=== PATIENT | male | born 1935 | race Caucasian/White ===

== ENCOUNTER 2021-03-26 13:02 | Outpatient (CLI) | payer MEDICARE, SELFPAY ==
--- NOTE | 2021-03-26 13:14 | CT_ITS ---
WS: [id number] CT ABDOMEN CONTRAST TECHNIQUE: Contrast enhanced CT of the abdomen with coronal and sagittal reformatted images. CLINICAL INFORMATION: ABDOMINAL PAIN COMPARISON: None. DLP: 671.[address] scans at [facility] use at least one of these dose optimization techniques: automat ed exposure control; mA and/or kV adjustment per patient size (includes targeted exams where dose is matched to clinical indication); or iterative reconstruction. FINDINGS: Advanced chronic emphysematous changes in the lung bases. Bulla formation right lower lobe. Mild diff use fatty infiltration liver. Numerous low-attenuation lesions in both hepatic lobes too small to darshana racterize but likely tiny hepatic cysts. Larger cyst in the inferior right hepatic lobe measuring 2.3 CM.Incidental enhancing lesion right hepatic lobe laterally likely cavernous hemangioma. Normal portal vein and splenic vein. Small esophageal hiatal hernia. Fatty atrophy of the pancreas. A ortic calcification. Normal caliber abdominal aorta. Adrenal glands are normal. Normal renal parenchy mal enhancement. No hydronephrosis. A few tiny bilateral renal cysts. Air distended loops of small elizabeth wel in the mid and upper abdomen with a few air-fluid levels. Persistent air within the partially vis ualized colon. Mild colonic constipation. No evidence of high-grade obstruction. Recommend correlatio n for small bowel ileus. No abdominal lymphadenopathy. Slight retrolisthesis L2 on L3, L3 on L4, L4 on L5. CT/CT abdomen w con* [id number] IMPRESSION: 1. Air distended loops of small bowel in the mid and upper abdomen with a few air-fluid levels. No evidence of high-grade obstruction.Correlation for small b owel ileus. 2. Mild colonic constipation partially visualized. 3. Numerous tiny low-attenuation lesions in both hepatic lobes too small mary cterize likely hepatic cysts. 4. 2.3 cm hepatic cyst right inferior hepatic lobe. 5. Incidental enhancing lesion right hepatic lobe laterally likely cavernous h emangioma. 6. No hydronephrosis in either kidney. A few tiny renal cysts. 7. Small esophageal hiatal hernia. 8. Tiny fat-containing umbilical hernia.
[2021-03-26] MEDS: iohexol 300 mg/mL 50 mL Btl PO (13:49)
[2021-03-26] MEDS: iohexol 300 mg/mL 100 mL Btl IV (14:22)
== END 2021-03-26 13:03 | disposition home or self-care (01) ==
PROVIDERS: PCP Nurse Practitioner Primary Care; Visit Provider Nurse Practitioner Primary Care
DX: R10.9 Unspecified abdominal pain (principal); K42.9 Umbilical hernia without obstruction or gangrene; K44.9 Diaphragmatic hernia without obstruction or gangrene; Q61.02 Congenital multiple renal cysts; K76.89 Other specified diseases of liver
CPT/HCPCS: 74160; Q9967

== ENCOUNTER 2021-04-17 13:06 | Emergency (ER) | payer MEDICARE, SELFPAY ==
[2021-04-17 13:40] VITALS: BP 176/87; PULSE 68; RESP 18; TEMP 36.7; O2SAT 95; BMI 19.0
[2021-04-17 17:08] LABS: Basophils # 0.1 10^3/uL (0.0-0.1); Basophils % 0.9 %; Eosinophils # 0.2 10^3/uL (0.0-0.8); Hematocrit 41.4 % (42.0-52.0); Hemoglobin 13.9 g/dL (11.7-16.6); Lymphocytes # 1.6 10^3/uL (0.8-4.8); Mean Corpuscular HGB Conc 33.6 g/dL (30.0-36.0); Mean Corpuscular Hemoglobin 32.6 pg (28.0-34.0); Mean Corpuscular Volume 97.2 fl (80-94); Mean Platelet Volume 9.6 fL (7.4-10.4); Monocytes % 13.1 %; Neutrophils # 4.75 10^3/uL (1.8-7.7); Neutrophils % 61.7 %; Nucleated Red Blood Cells % 0 %; Platelet Count 338 10^3/cmm (130-400); Red Blood Count 4.26 10^6/uL (4.1-5.3); Red Cell Distribution Width 11.8 % (12.1-15.1); White Blood Count 7.7 10^3/uL (4.0-10.0)
[2021-04-17 17:22] VITALS: BP 146/92; PULSE 82; RESP 18; O2SAT 97
[2021-04-17 17:26] LABS: Alanine Aminotransferase 13 U/L (0-41); Albumin Level 4.1 g/dL (3.5-5.2); Alkaline Phosphatase 90 IU/L (40-130); Anion Gap 16.4 (5-19); Aspartate Amino Transferase 20 U/L (0-40); Blood Urea Nitrogen 17 mg/dL (8-23); Calcium 11.9 mg/dL (8.5-10.5); Carbon Dioxide 29 mmol/L (22-29); Chloride 96 mmol/L (98-107); Globulin 3.5 g/dL (1.3-4.6); Glucose 98 mg/dL (65-115); Lipase 26 U/L (13-60); Osmolality Calculated 288 mOsm/kg (285-295); Potassium 3.4 mmol/L (3.5-5.1); Sodium 138 mmol/L (136-145); Total Bilirubin 0.7 mg/dL (0.15-1.2); Total Protein 7.6 g/dL (6.6-8.7)
[2021-04-17 17:28] LABS: Add Urine Microscopic? NO; Charge for UA Resulting for Rev
[2021-04-17 17:32] LABS: Urine Appearance Cloudy (CLEAR); Urine Color Straw (Yellow); pH Urine 8 (5-7)
[2021-04-17 17:33] LABS: Bilirubin Urine Neg (Negative); Blood Urine Neg (Negative); Glucose Urine UA Norm (Normal); Ketones Urine Negative (Negative); Leukocyte Esterase Urine Negative (Negative); Nitrate Urine Negative (Negative); Protein Urine Neg (Negative); Urobilinogen Urine Norm (Negative)
--- NOTE | 2021-04-17 17:52 | CTR_ITS ---
PROCEDURE INFORMATION: Exam: CT Abdomen And Pelvis With Contrast Exam date and time: 04/17/2021 5:52 PM Age: 85 years old Clinical indication: Prior surgery; Surgery type: Hernia; Patient HX: General abd pain, constipation, non smoker, no HX cancer TECHNIQUE: Imaging protocol: Computed tomography of the abdomen and pelvis with contrast. Radiation optimization: All CT scans at this facility use at least one of these dose optimization techniques: automated exposure control; mA and/or kV adjustment per patient size (includes targeted exams where dose is matched to clinical indication); or iterative reconstruction. Contrast material: [id number]; Contrast volume: 87 ml; Contrast route: INTRAVENOUS (IV); COMPARISON: CT abdomen w con* [id number] 03/26/2021 2:19 PM RADIATION DOSE METRICS: Total DLP (mGy-cm): 670.89 FINDINGS: Lungs: Increased coarse interstitial opacities in the peripheral lungs. Changes of emphysema with multiple blebs. Liver: Multiple low-density lesions in the liver are too small to characterize but are most likely cysts. Focal fatty infiltration in the left lobe. No follow-up imaging is recommended. Gallbladder and bile ducts: Normal. No calcified stones. No ductal dilation. Pancreas: Normal. No ductal dilation. Spleen: Normal. No splenomegaly. Adrenal glands: Normal. No mass. Kidneys and ureters: Small hypodense lesion in the left kidney is too small to characterize but is most likely a cyst. The kidneys are otherwise unremarkable. No follow-up imaging is recommended. Stomach and bowel: Large amount of stool throughout the colon to the rectum. Diffuse gaseous distension of the small bowel with no air-fluid levels. Gaseous distention of the transverse colon. Appendix: The appendix is visualized and is normal. Intraperitoneal space: Unremarkable. No free air. No significant fluid collection. Vasculature: Atherosclerotic calcifications. No aneurysm. Lymph nodes: Unremarkable. No enlarged lymph nodes. Urinary bladder: Unremarkable as visualized. Reproductive: Coarse calcifications in the prostate. Bones/joints: Scoliosis with degenerative changes of the lumbar spine. No fracture. Soft tissues: Unremarkable. CT/CT abdomen pelvis w con* [id number] IMPRESSION: 1. Diffuse gaseous distention of the small bowel is most likely ileus. 2. Large amount of stool in the colon with gaseous distention of the transverse colon. This likely indicates constipation with possible rectal impaction. 3. Increased coarse interstitial opacities in the peripheral lungs. This could represent progressive interstitial fibrosis. Superimposed pneumonia is not excluded. COMMENTS: Consistent with the [employer]'s Incidental Findings Committee white paper (J Am Sarmad Radiol 2018): Any incidental renal lesion less than 1 cm or classified as too small to characterize, or any incidental cystic renal lesion characterized as simple-appearing, is likely benign. No follow-up imaging is recommended for these lesions per consensus recommendations based on imaging criteria. Radiation Dose CTDIVOL = (mGy): DLP = 670.89 (mGy-cm)
[2021-04-17 18:09] VITALS: BP 143/79; RESP 18; O2SAT 95
--- NOTE | 2021-04-17 19:24 | PC.NURSE ---
ct called patient next, patient updated
[2021-04-17 19:31] VITALS: BP 145/85; PULSE 59; RESP 12; O2SAT 91
--- NOTE | 2021-04-17 19:33 | PC.NURSE ---
introduction to patient, no distress noted, patient resting on bed, no neds or concerns at this time
--- NOTE | 2021-04-17 21:17 | PC.NURSE ---
emema completed per dr order patient tolerated well, bedside commode and call lih=t in reach, patient to call if needs assistance or when completed bm
--- NOTE | 2021-04-17 21:40 | ED_ITS ---
HPI - Abdominal Pain General: Chief Complaint: Abdominal Pain Stated Complaint: trouble emptying bowels Time Seen by Provider: 04/17/21 16:53 Source: patient and family Mode of arrival: ambulatory Limitations: no limitations History of Present Illness: HPI narrative: This pleasant 85-year-old male presents to the emergency department with constipation and abdominal pain. He was sent by his primary care provider because he had apparently obtained a CT scan a few days ago which was concerning for bowel obstruction. The patient's last bowel movement was 3 days ago. Usual for him should be about once a day but he has had issues with constipation for many years now. He denies any fever, denies nausea or vomiting. He denies any urinary symptoms. MD elicited complaint: abdominal pain Pertinent past history: constipation Onset (ago): day(s) (3) Pain Consistency: constant Location: Diffuse Severity: moderate Quality: cramping Radiation: none Migration to: no migration Exacerbating factors: nothing Relieving factors: nothing Associated Symptoms: Reports change in stool character, constipation and GI cramping; Denies anorexia, belching, bloating, change in bowel habits, chills, coffee ground emesis, diarrhea, dyspepsia, dysuria, excessive flatus, fever(s), heartburn, hematochezia, hematuria, hematemesis, fecal incontinence, loose stools, melena, nausea, poor appetite, syncope and vomiting Review of Systems General: Reports: 10 or more systems reviewed and unremarkable except in HPI and below Const: Denies: fever(s) or chills Card: Denies: syncope GI: Reports: constipation, GI cramping and change in stool character; Denies: nausea, vomiting, hematemesis, coffee ground emesis, heartburn, di arrhea, bloating, belching, excessive flatus, fecal incontinence, change in bowel habits, hematochezia or melena : Denies: dysuria or hematuria Physical Exam Const: COMMON NORMALS: no acute distress, average body habitus, patient oriented x3, no limitations, healthy appearing, alert and well nourished HENMT: COMMON NORMALS: normocephalic, atraumatic and moist oral mucous membranes HEAD & SCALP: normocephalic and atraumatic Neck/C-Spine: COMMON NORMALS: no meningeal signs and no JVD Resp: COMMON NORMALS: normal respiratory effort, No retractions, No use of accessory muscles, clear to auscultation bilaterally and percussion normal AU SCULTATION: clear to auscultation bilaterally PERCUSSION: percussion normal Cardio: COMMON NORMALS: no JVD, regular rate, regular rhythm, S1 normal heart sound present, S2 normal heart sound present, No gallops present (Cardio), No clicks present (Cardio), No murmurs present (Cardio), No rub (Cardio) and P eripheral pulses 2+ throughout RATE: regular rate RHYTHM: regular rhythm HEART SOUNDS: S1 normal heart sound present and S2 normal heart sound present PERIPHERAL PULSES: Peripheral pulses 2+ throughout GI: COMMON NORMALS: Soft to palpation, non-tender, No hepatosplenomegaly present, no masses and no bruits INSPECTION: Yes abdominal distension (lower abdomen) AUSCULTATION: Yes Hyperactive bowel sounds present PALPATION: Yes Soft to palpation and Yes No hepatosplenomegaly present Extremity: COMMON NORMALS: normal to inspection, full ROM, capillary refill normal, no calf tenderness and no pedal edema Neuro: COMMON NORMALS: patient oriented x3 SENSORIUM/ORIENTATION: Yes alert MENINGEAL SIGNS: Yes no meningeal signs Skin: COMMON NORMALS: no rashes or lesions noted, no wounds, turgor normal, no jaundice, no petechiae and no mottling GENERAL SKIN EXAM: no rashes or lesions noted and turgor normal Course Reevaluation(s): Reevaluation #1: Discussed his lab and imaging findings with him. CT scan is consistent with constipation only. No signs of bowel ob struction. We did give him milk and molasses enema and this was successful and he had a large bowel movement. He feels much better. He is ready to be discharged home. We will discharge him home with a prescription for MiraLAX to help him have regular bowel movements. He voiced understanding and is in agreement with the plan. Time: 21:41 Vital Signs: Vital signs: Vital Signs Temperature 98.1 F 04/17/21 13:40 Pulse Rate 88 04/17/21 22:11 Respiratory Rate 22 H 04/17/21 22:11 Blood Pressure 116/56 04/17/21 22:11 Pulse Oximetry 98 04/17/21 22:11 MDM - Abdominal Pain MDM Narrative: Medical decision making narrative: 85-year-old male who presents to the emergency department with constipation. He had concerns for bowel obstruction but evaluation here was consistent with constipation. He had an enema done in the emergency department which was very successful and he is discharged home. Medical Records: Attestation: I reviewed the patient's medical records. Lab Data: Attestation: I reviewed the patient's lab results. Labs: Lab Results 04/17/21 04/17/21 04/17/21 Range/Units 17:00 17:00 17:22 WBC 7.7 (4.0-10.0) 10^3/ uL RBC 4.26 (4.1-5.3) 10^6/u L Hgb 13.9 (11.7-16.6) g/dL Hct 41.4 L (42.0-52.0) % MCV 97.2 H (80-94) fl MCH 32.6 (28.0-34.0) pg MCHC 33.6 (30.0-36.0) g/dL RDW 11.8 L (12.1-15.1) % Plt Count 338 (130-400) 10^3/c mm MPV 9.6 (7.4-10.4) fL Neut % (Auto) 61.7 % Lymph % (Auto) 21.0 % [place] % (Auto) 13.1 % Eos % (Auto) 3.0 % Baso % (Auto) 0.9 % Neut # (Auto) 4.75 (1.8-7.7) 10^3/u L Lymph # (Auto) 1.6 (0.8-4.8) 10^3/u L [place] # (Auto) 1.0 H (0.2-0.9) 10^3/u L Eos # (Auto) 0.2 (0.0-0.8) 10^3/u L Baso # (Auto) 0.1 (0.0-0.1) 10^3/u L Nucleated RBC % (a uto) 0 % Nucleated RBCs # 0.0 /100WBC Sodium 138 (136-145) mmol/L Potassium 3.4 L (3.5-5.1) mmol/L Chloride 96 L (98-107) mmol/L Carbon Dioxide 29 (22-29) mmol/L Anion Gap 16.4 (5-19) BUN 17 (8-23) mg/dL Creatinine 0.7 (0.7-1.2) mg/dL GFR Calculation Not Reportable Glucose 98 (65-115) mg/dL Calculated Osmolal ity 288 (285-295) mOsm/k g Calcium 11.9 H (8.5-10.5) mg/dL Total Bilirubin 0.7 (0.15-1.2) mg/dL AST 20 (0-40) U/L ALT 13 (0-41) U/L Alkaline Phosphata se 90 (40-130) IU/L Total Protein 7.6 (6.6-8.7) g/dL Albumin 4.1 (3.5-5.2) g/dL Globulin 3.5 (1.3-4.6) g/dL Lipase 26 (13-60) U/L Urine Color Straw (Yellow) Urine Appearance Cloudy (CLEAR) Urine pH 8 H (5-7) Ur Specific Gravit y 1.010 (1.005-1.030) Urine Protein Neg (Negative) Urine Glucose (UA) Norm (Normal) Urine Ketones Negative (Negative) Urine Blood Neg (Negative) Urine Nitrate Negative (Negative) Urine Bilirubin Neg (Negative) Urine Urobilinogen Norm (Negative) mg/dL Ur Leukocyte Radha ase Negative (Negative) Imaging Data ^: CT Abd/Pel: Attestation: I personally reviewed and interpreted this imaging study as follows: Radiologist's impression: [address] [id number] Scan ReportSigned Patient: Carlos Pickens #: [id number]: 1935cct#:[id number]/Sex: 85 / MADM Date: 04/17/21Loc: ERRoom/Bed:Attending Dr: Ordering Provider/Ordering MD: Dai James MD, [facility] [place] Date of Service: 04/17/21 Procedure(s): CT abdomen pelvis w con* [id number] Accession Number(s): [id number] Report Number: [id number] PROCEDURE INFORMATION: Exam: CT Abdomen And Pelvis With Contrast Exam date and time: 04/17/2021 5:52 PM Age: 85 years old Clinical indication: Prior surgery; Surgery type: Hernia; Patient HX: General abd pain, constipation, non smoker, no HX cancer TECHNIQUE: Imaging protocol: Computed tomography of the abdomen and pelvis with contrast. Radiation optimization: All CT scans at this facility use at least one of these dose optimization techniques: automated exposure control; mA and/or kV adjustment per patient size (includes targeted exams where dose is matched to clinical indication); or iterative reconstruction. Contrast material: [id number]; Contrast volume: 87 ml; Contrast route: INTRAVENOUS (IV); COMPARISON: CT abdomen w con* [id number] 03/26/2021 2:19 PM RADIATION DOSE METRICS: Total DLP (mGy-cm): 670.89 FINDINGS: Lungs: Increased coarse interstitial opacities in the peripheral lungs. Changes of emphysema with multiple blebs. Liver: Multiple low-density lesions in the liver are too small to characterize but are most likely cysts. Focal fatty infiltration in the left lobe. No follow-up imaging is recommended. Gallbladder and bile ducts: Normal. No calcified stones. No ductal dilation. Pancreas: Normal. No ductal dilation. Spleen: Normal. No splenomegaly. Adrenal glands: Normal. No mass. Kidneys and ureters: Small hypodense lesion in the left kidney is too small to characterize but is most likely a cyst. The kidneys are otherwise unremarkable. No follow-up imaging is recommended. Stomach and bowel: Large amount of stool throughout the colon to the rectum. Diffuse gaseous distension of the small bowel with no air-fluid levels. Gaseous distention of the transverse colon. Appendix: The appendix is visualized and is normal. Intraperitoneal space: Unremarkable. No free air. No significant fluid collection. Vasculature: Atherosclerotic calcifications. No aneurysm. Lymph nodes: Unremarkable. No enlarged lymph nodes. Urinary bladder: Unremarkable as visualized. Reproductive: Coarse calcifications in the prostate. Bones/joints: Scoliosis with degenerative changes of the lumbar spine. No fracture. Soft tissues: Unremarkable. CT/CT abdomen pelvis w con* [id number] IMPRESSION: 1. Diffuse gaseous distention of the small bowel is most likely ileus. 2. Large amount of stool in the colon with gaseous distention of the transverse colon. This likely indicates constipation with possible rectal impaction. 3. Increased coarse interstitial opacities in the peripheral lungs. This could represent progressive interstitial fibrosis. Superimposed pneumonia is not excluded. COMMENTS: Consistent with the [employer]'s Incidental Findings Committee white paper (J Am Sarmad Radiol 2018): Any incidental renal lesion less than 1 cm or classified as too small to characterize, or any incidental cystic renal lesion characterized as simple-appearing, is likely benign. No follow-up imaging is recommended for these lesions per consensus recommendations based on imaging criteria. Radiation Dose CTDIVOL = (mGy): DLP = 670.89 (mGy-cm) Dictated By:Padmini Byrd By:Padmini Byrd Date/Time:04/17/212019DD/ 17 Discharge Plan Discharge Patient Disposition: Home Clinical Impression: Constipation Qualifiers: Constipation type: unspecified constipation type Qualified Code(s): K59.00 - Constipation, unspecified Condition: Stable Prescriptions: New Miralax 17 gram/dose powder 17 g PO DAILY PRN (Reason: constipation) Qty: 238 RF: 0 Continued triamterene-hydrochlorothiazid 37.5-25 mg capsule 1 cap PO DAILY RF: 0 levothyroxine 25 mcg tablet 25 mcg PO DAILY RF: 0 clonidine HCl 0.2 mg tablet 0.2 mg PO BID RF: 0 amlodipine 10 mg tablet 10 mg PO DAILY RF: 0 aspirin 81 mg Tablet,Chewable 81 mg PO DAILY RF: 0 lovastatin 20 mg tablet 20 mg PO DAILY RF: 0 lisinopril 40 mg tablet 40 mg PO DAILY RF: 0 metoprolol tartrate 25 mg tablet 25 mg PO TID RF: 0 Discharge Orders: Discharge ED (Routine); Ordered 04/17/21 Ordered By: Dai James Referrals: Kelly Simmons ORTHOPEDICALLY IMPAIRED TEACHER [Primary Care Provider] - 1-3 days Discharge Diet: Usual diet Discharge Activity: Increase activity as tolerated Patient Instructions: Constipation (ED) Activity Restrictions/Additional Instructions: Return for any new or worsening symptoms. Follow-up with your primary care provider within 3 days. Take the MiraLAX daily to help you have regular bowel movements. Continue your other medications. Coding Level of Care Code ED Motor Generator Set Operator for Surinder Garza
[2021-04-17 22:11] VITALS: BP 116/56; PULSE 88; RESP 22; O2SAT 98
== END 2021-04-17 22:13 | disposition home or self-care (01) ==
PROVIDERS: Emergency Medicine; Emergency Provider Family Medicine; PCP Nurse Practitioner Primary Care
DX: K59.00 Constipation, unspecified (principal)
CPT/HCPCS: 74177; 80053; 81003; 83690; 85025; 99283; Q9967

== ENCOUNTER 2022-07-27 15:52 | Emergency (ER) | payer MEDICARE, SELFPAY ==
[2022-07-27 15:55] VITALS: BP 203/84; PULSE 79; RESP 16; TEMP 36.8; O2SAT 99
--- NOTE | 2022-07-27 16:02 | CTR_ITS ---
PROCEDURE INFORMATION: Exam: CT Head Without Contrast Exam date and time: 07/27/2022 4:45 PM Age: 86 years old Clinical indication: Other: Lle numbness; Prior surgery; Surgery type: Cataract; Patient HX: Hbp today with fast heart rate, left lower extremity numbness, tingling TECHNIQUE: Imaging protocol: Computed tomography of the head without contrast. Radiation optimization: All CT scans at this facility use at least one of these dose optimization techniques: automated exposure control; mA and/or kV adjustment per patient size (includes targeted exams where dose is matched to clinical indication); or iterative reconstruction. COMPARISON: No relevant prior studies available. RADIATION DOSE METRICS: Total DLP (mGy-cm): 1095.38 FINDINGS: Brain: There is marked cerebral atrophy. There is moderate diffuse heterogeneity of the white matter attenuation, consistent with chronic white matter ischemic changes. Negative for intracranial hemorrhage. Negative for midline shift of brain. Negative for mass effect on the brain. Subinsular white matter gliosis changes bilaterally. Cerebral ventricles: No ventriculomegaly. Paranasal sinuses: Visualized sinuses are unremarkable. No fluid levels. Mastoid air cells: Visualized mastoid air cells are well aerated. Bones/joints: Unremarkable. No acute fracture. Soft tissues: Unremarkable. CT/CT head wo con* [id number] IMPRESSION: 1. Negative for acute intracranial abnormality. 2. Chronic ischemic brain changes apparent.
[2022-07-27 16:40] LABS: Basophils # 0.1 10^3/uL (0.0-0.1); Basophils % 0.8 %; Eosinophils # 0.1 10^3/uL (0.0-0.8); Eosinophils % 1.6 %; Hematocrit 46.7 % (42.0-52.0); Hemoglobin 15.6 g/dL (11.7-16.6); Lymphocytes # 1.9 10^3/uL (0.8-4.8); Lymphocytes % 24.5 %; Mean Corpuscular HGB Conc 33.4 g/dL (30.0-36.0); Mean Corpuscular Hemoglobin 33.1 pg (28.0-34.0); Mean Corpuscular Volume 98.9 fl (80-94); Mean Platelet Volume 10.7 fL (7.4-10.4); Monocytes # 0.8 10^3/uL (0.2-0.9); Monocytes % 10.7 %; Neutrophils % 62.1 %; Nucleated Red Blood Cells % 0 %; Platelet Count 266 10^3/cmm (130-400); Red Blood Count 4.72 10^6/uL (4.1-5.3); Red Cell Distribution Width 12.1 % (12.1-15.1); White Blood Count 7.6 10^3/uL (4.0-10.0)
[2022-07-27 17:10] LABS: Alanine Aminotransferase 15 U/L (0-41); Albumin Level 4.8 g/dL (3.5-5.2); Alkaline Phosphatase 102 U/L (40-130); Anion Gap 14.5 (5-19); Aspartate Amino Transferase 26 U/L (0-40); Blood Urea Nitrogen 17 mg/dL (8-23); Calcium 10.9 mg/dL (8.5-10.5); Carbon Dioxide 30 mmol/L (22-29); Chloride 94 mmol/L (98-107); Globulin 3.5 g/dL (1.3-4.6); Glucose 99 mg/dL (65-115); NT Pro B Type Natriuretic Pept 214 pg/mL (0-450); Osmolality Calculated 282 mOsm/kg (285-295); Potassium 3.5 mmol/L (3.5-5.1); Sodium 135 mmol/L (136-145); Total Bilirubin 0.6 mg/dL (0.15-1.2); Total Protein 8.3 g/dL (6.6-8.7)
[2022-07-27 18:18] VITALS: BP 188/94; PULSE 66; O2SAT 98
--- NOTE | 2022-07-27 18:18 | PC.NURSE ---
WHILE WITH PT IN LOBBY PT IS IN NAD.
[2022-07-27 22:41] VITALS: BP 174/125; PULSE 53; RESP 18; O2SAT 97
--- NOTE | 2022-07-27 23:35 | ECG_ITS ---
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 Measurements Intervals [place] Rate: 64 P: 63 MO: 201 QRS: -85 QRSD: 111 T: 71 QT: 410 QTc: 425 Interpretive Statements SINUS RHYTHM WITH FREQUENT SUPRAVENTRICULAR PREMATURE COMPLEXES Unusual R wave progression, possible old anterior wall OH LEFT AXIS DEVIATION [QRS AXIS < -30] RIGHT BUNDLE BRANCH BLOCK [120+ ms QRS DURATION, UPRIGHT V1, 40+ ms S IN I/aVL/V4/V5/V6] No previous ECG available for comparison Electronically Signed On 07-28-2022 16:13:59 HOSPITAL SECRETARY by Saleem Phelps M.D. [id number]
[2022-07-27] MEDS: hyDRALAzine 20 mg/mL INJ 1 mL 10 MG IVP (23:38)
[2022-07-28] VITALS: BP 121/83; PULSE 101; RESP 16; O2SAT 95
--- NOTE | 2022-07-28 00:23 | W.ED.GENADLT ---
HPI - General Adult General: Chief complaint: General Medical Stated complaint: High bp and irregular hr Time Seen by Provider: 07/27/22 22:40 Source: patient Mode of arrival: ambulatory Limitations: no limitations History of Present Illness: 86-year-old male states he been having high blood pressure throughout the day he does have a history blood pressure he states has been taken his meds it is been running in the 200s today. He denies any weakness denies slurred speech he said no chest pain no headache he states he had some mild numbness to his left lower leg earlier today since resolved. Patient is ambulatory here without any difficulties he denies any worsening proving factors. Associated symptoms: Deny chest pain, dyspnea, headache(s), nausea, rash or vomiting Review of Systems Const: Denies: fever(s), chills, body aches or change in appetite Eyes: Denies: blurry vision or eye discomfort ENMT: Denies: throat pain or dental pain Card: Denies: chest pain Resp: Denies: dyspnea GI: Denies: abdominal pain, nausea, vomiting or diarrhea : Denies: dysuria Musc: Denies: neck pain or back pain Skin/Breast: Denies: rash Neuro: Denies: headache(s) Psych: Denies: depression Grzegorz/Lymph: Denies: easy bruising All/Imm: Denies: urticaria PFSH ED PFSH: Medical History (Updated 07/28/22 @ 00:26 by Terence Ramos MD) Hypertension Social History (Updated 07/28/22 @ 00:26 by Terence Ramos MD) Substance/Drug Use: never Physical Exam Const: COMMON NORMALS: no acute distress, patient oriented x3 and healthy appearing HENMT: COMMON NORMALS: normocephalic and atraumatic HEAD & SCALP: normocephalic and atraumatic Eye: COMMON NORMALS: Equal, round and reactive pupils present and EOMs intact bilaterally PUPIL: Yes Equal, round and reactive pupils present Neck/C-Spine: COMMON NORMALS: full ROM and supple Chest: COMMONS NORMALS: normal inspection of the chest and normal palpation of entire chest wall Resp: COMMON NORMALS: normal respiratory effort, No retractions, No use of accessory muscles and clear to auscultation bilaterally AUSCULTATION: clear to auscultation bilaterally Cardio: COMMON NORMALS: regular rate, regular rhythm and No murmurs present (Cardio) RATE: regular rate RHYTHM: regular rhythm GI: COMMON NORMALS: Normal to inspection, nondistended, normoactive bowel sounds present, Soft to palpation, non-tender and no masses PALPATION: Yes Soft to palpation Extremity: COMMON NORMALS: normal to inspection and full ROM Neuro: COMMON NORMALS: patient oriented x3, moves all extremities and no focal motor deficits CRANIAL NERVES: Yes CN normal except as noted SPEECH: speech normal GAIT: Yes Normal gait present SENSORY EXAM: Yes Normal double simultaneous stimulation for sensation MOTOR EXAM: 5/5 motor strength present throughout Psych: COMMON NORMALS: mental status grossly normal, Normal thought process present and cooperative THOUGHT PROCESS: Normal thought process present Skin: COMMON NORMALS: no rashes or lesions noted and no wounds GENERAL SKIN EXAM: no rashes or lesions noted Course Vital Signs: Vital signs: Vital Signs Temperature 98.2 F 07/27/22 15:55 Pulse Rate 53 L 07/27/22 22:41 Respiratory Rate 18 07/27/22 22:41 Blood Pressure 174/125 07/27/22 22:41 Pulse Oximetry 97 07/27/22 22:41 Oxygen Delivery Me thod 07/27/22 22:41 MDM - General Adult Medical Decision Making Patient presents here with high blood pressure his blood pressure here is improved he has no neuro symptoms he had some mild numbness in his left leg that is since resolved he has no weakness no vision changes no slurred speech he has no signs of a stroke he had no headache no chest pain he stable for discharge he is to continue his blood pressure medicines at home he is to follow-up with PCP and return if worsening he understands agrees to plan his blood pressure currently is 161/80 Lab Data 07/27/22 16:12 07/27/22 16:[address] 07/27/22 16:02 IMPRESSION: 1. Negative for acute intracranial abnormality. 2. Chronic ischemic brain changes apparent. Laboratory Results WBC 7.6 10^3/uL (4.0-10.0) 07/27/22 16:12 RBC 4.72 10^6/uL (4.1-5.3) 07/27/22 16:12 Hgb 15.6 g/dL (11.7-16.6) 07/27/22 16:12 Hct 46.7 % (42.0-52.0) 12/06/22 16:12 MCV 98.9 fl (80-94) H 07/27/22 16:12 MCH 33.1 pg (28.0-34.0) 07/27/22 16:12 MCHC 33.4 g/dL (30.0-36.0) 07/27/22 16:12 RDW 12.1 % (12.1-15.1) 07/27/22 16:12 Plt Count 266 10^3/cmm (130-400) 07/27/22 16:12 MPV 10.7 fL (7.4-10.4) H 07/27/22 16:12 Neut % (Auto) 62.1 % 07/27/22 16:12 Lymph % (Auto) 24.5 % 07/27/22 16:12 Duchesne % (Auto) 10.7 % 07/27/22 16:12 Eos % (Auto) 1.6 % 07/27/22 16:12 Baso % (Auto) 0.8 % 07/27/22 16:12 Neut # (Auto) 4.70 10^3/uL (1.8-7.7) 07/27/22 16:12 Lymph # (Auto) 1.9 10^3/uL (0.8-4.8) 07/27/22 16:12 Duchesne # (Auto) 0.8 10^3/uL (0.2-0.9) 07/27/22 16:12 Eos # (Auto) 0.1 10^3/uL (0.0-0.8) 07/27/22 16:12 Baso # (Auto) 0.1 10^3/uL (0.0-0.1) 07/27/22 16:12 Nucleated RBC % (auto) 0 % 07/27/22 16:12 Nucleated RBCs # 0.0 /100WBC 07/27/22 16:12 Sodium 135 mmol/L (136-145) L 07/27/22 16:12 Potassium 3.5 mmol/L (3.5-5.1) 07/27/22 16:12 Chloride 94 mmol/L (98-107) L 07/27/22 16:12 Carbon Dioxide 30 mmol/L (22-29) H 07/27/22 16:12 Anion Gap 14.5 (5-19) 07/27/22 16:12 BUN 17 mg/dL (8-23) 07/27/22 16:12 Creatinine 0.9 mg/dL (0.7-1.2) 07/27/22 16:12 GFR Calculation Not Reportable 07/27/22 16:12 Glucose 99 mg/dL (65-115) 07/27/22 16:12 Calculated Osmolality 282 mOsm/kg (285-295) L 07/27/22 16:12 Calcium 10.9 mg/dL (8.5-10.5) H 07/27/22 16:12 Total Bilirubin 0.6 mg/dL (0.15-1.2) 07/27/22 16:12 AST 26 U/L (0-40) 07/27/22 16:12 ALT 15 U/L (0-41) 07/27/22 16:12 Alkaline Phosphatase 102 U/L (40-130) 07/27/22 16:12 NT-Pro-B Natriuret Pep 214 pg/mL (0-450) 07/27/22 16:12 Total Protein 8.3 g/dL (6.6-8.7) 07/27/22 16:12 Albumin 4.8 g/dL (3.5-5.2) 07/27/22 16:12 Globulin 3.5 g/dL (1.3-4.6) 07/27/22 16:12 Discharge Plan Discharge Patient Disposition: Home Clinical Impression: Hypertension Condition: Stable Prescriptions: No Action triamterene-hydrochlorothiazid 37.5-25 mg capsule 1 cap PO DAILY levothyroxine 25 mcg tablet 25 mcg PO DAILY clonidine HCl 0.2 mg tablet 0.2 mg PO BID amlodipine 10 mg tablet 10 mg PO DAILY aspirin 81 mg Tablet,Chewable 81 mg PO DAILY lovastatin 20 mg tablet 20 mg PO DAILY lisinopril 40 mg tablet 40 mg PO DAILY metoprolol tartrate 25 mg tablet 25 mg PO TID Miralax 17 gram/dose powder 17 g PO DAILY PRN (Reason: constipation) Qty: 238 0RF Discharge Orders: Discharge ED (Routine); Ordered 07/28/22 Ordered By: Terence Ramos Referrals: Kelly Simmons, [facility] [Primary Care Provider] - 1-3 days Discharge Diet: Advance as tolerated Discharge Activity: Resume usual activity Patient Instructions: Hypertension (ED) Coding Level of Care Code ED [employer] for Surinder Garza
[2022-07-28 00:42] VITALS: BP 175/77; PULSE 60; RESP 16; O2SAT 95
== END 2022-07-28 00:44 | disposition home or self-care (01) ==
PROVIDERS: Emergency Medicine; Emergency Provider Emergency Medicine; PCP Nurse Practitioner Primary Care
DX: I10 Essential (primary) hypertension (principal); Z79.82 Long term (current) use of aspirin
CPT/HCPCS: 36415; 70450; 80053; 83880; 85025; 93005; 96374; 99285; J0360